=== PATIENT | male | born 1980 | race Two or more races ===

== ENCOUNTER 2024-11-15 15:09 | Emergency (ER) | payer OTHER ==
[~2024-11-15] VITALS: Ht 167.6 cm; Wt 77.1 kg
[2024-11-15] MEDS ORDERED: SYNTHROID88 MCG PO (15:49)
[2024-11-15] MEDS ORDERED: ATORVASTATIN CA10 MG PO (15:49)
[2024-11-15] MEDS ORDERED: KETOROLAC TROMETHAMINE 30 MG VIAL IM ONE (17:30)
[2024-11-15] MEDS ORDERED: ORPHENADRINE CITRATE 30 MG/ML AMPUL IM ONE (17:30)
[2024-11-15] MEDS ORDERED: DICLOFENAC SODI50 MG PO (18:03)
[2024-11-15] MEDS ORDERED: NORFLEX100MG PO (18:03)
== END 2024-11-15 19:23 ==
LOC: ER 15:09
DX: M62.838 Other muscle spasm (principal); E03.8 Other specified hypothyroidism